=== PATIENT | female | born 1985 | race Caucasian/White ===

== ENCOUNTER 2021-01-04 13:35 | Inpatient (IN) | payer SELFPAY ==
[~2021-01-04] VITALS: Ht 160 cm; Wt 97.5 kg
[2021-01-04] MEDS ORDERED: ROPIVACAINE 0.2%/NS PREMIX 100 ML EPI SCH (14:10)
[2021-01-04] MEDS ORDERED: ROPIVACAINE 0.2%/NS PREMIX 200 ML EPI ONE (14:22)
[2021-01-04] MEDS ORDERED: CARBOPROST 250 MCG/ML AMP IM PRN (14:50)
[2021-01-04] MEDS ORDERED: PROMETHAZINE 25 MG/ML VIAL IVP PRN (14:50)
[2021-01-04] MEDS ORDERED: LACTATED RINGERS 1,000 ML IV SCH (14:50)
[2021-01-04] MEDS ORDERED: METHYLERGONOVINE 0.2 MG/ML AMP IM PRN ×2 (14:50→16:40)
[2021-01-04] MEDS ORDERED: NALBUPHINE 10 MG/ML AMP IVP PRN (14:50)
[2021-01-04 15:35] LABS: BASOPHILS # (AUTO) 0.2 K/uL (0.00-0.22); BASOPHILS % (AUTO) 1.3 % (0.0-2.0); HEMATOCRIT 30.8 % (36-48); HEMOGLOBIN 10.3 g/dL (12.0-16.0); LYMPHOCYTES # (AUTO) 0.8 K/uL (2.5-16.5); LYMPHOCYTES % (AUTO) 5.7 % (20.5-51.1); MEAN CORPUSCULAR HEMOGLOBIN 28 pg (27-31); MEAN CORPUSCULAR HGB CONC 34 g/dL (33-37); MONOCYTES # (AUTO) 0.6 K/uL (0.8-1.0); MONOCYTES % (AUTO) 4.2 % (1.7-9.3); NEUTROPHILS # (AUTO) 13.1 K/uL (1.8-7.7); NEUTROPHILS % (AUTO) 88.8 % (42.2-75.2); PLATELET COUNT (AUTO) 216 K/uL (140-450); RED BLOOD CELL COUNT(AUTO) 3.66 MIL/uL (4.20-5.40); RED CELL DISTRIBUTION WIDTH 14.7 % (11.6-13.7); WHITE BLOOD COUNT (AUTO) 14.8 K/uL (4.8-10.8)
[2021-01-04 15:40] VITALS: BP 130/72
[2021-01-04] MEDS ORDERED: OXYTOCIN 20 UNITS/LR PREMIX 1,000 ML IV ONE (15:41)
[2021-01-04 15:44] LABS: APPEARANCE,URINE CLEAR (CLEAR); BILIRUBIN,URINE NEGATIVE (NEGATIVE); BLOOD, URINE 2+ (NEGATIVE); COLOR,URINE YELLOW (YELLOW); LEUKOCYTE ESTERASE ,URINE NEGATIVE (NEGATIVE); NITRITE, URINE NEGATIVE (NEGATIVE); UGLUCOSE NEGATIVE (NEGATIVE)
[2021-01-04 15:49] LABS: RBC,URINE 20-50 /HPF (0-5); WBC,URINE 0-5 /HPF (0-5)
[2021-01-04 15:50] LABS: ALBUMIN 2.3 g/dL (3.4-5.0); ANION GAP 14.6 (8-16); CARBON DIOXIDE 21.6 mmol/L (21-32); CREATININE 0.8 mg/dL (0.6-1.3); POTASSIUM 4.2 mmol/L (3.5-5.1); TOTAL BILIRUBIN 0.3 mg/dL (0.0-1.0)
[2021-01-04 15:58] LABS: BARBITURATE, URINE NEGATIVE ng/ml (NEG <=200); BENZODIAZEPINE, URINE NEGATIVE ng/mL (NEG <=200); CANNABINOID, URINE NEGATIVE ng/mL (NEG <=50); COCAINE, URINE NEGATIVE ng/mL (NEG <=300); OPIATE, URINE NEGATIVE ng/mL (NEG <=2000); PHENCYCLIDINE SCREEN,URINE NEGATIVE ng/mL (NEG <=25)
[2021-01-04] MEDS ORDERED: MISOPROSTOL 200 MCG TAB ONE (15:58)
[2021-01-04] MEDS ORDERED: MEASLES, MUMPS, AND RUBELLA 1 VIAL SQVAC ONE (16:40)
[2021-01-04] MEDS ORDERED: bisacodyL 5 MG TABEC PO PRN (16:40)
[2021-01-04] MEDS ORDERED: OXYTOCIN 10 UNITS/ML VIAL IM PRN (16:40)
[2021-01-04] MEDS ORDERED: SIMETHICONE 80 MG TAB.CHEW PO PRN (16:40)
[2021-01-04] MEDS ORDERED: BENZOCAINE/MENTHOL 20%-0.5% 60 GM CAN TP PRN (16:40)
[2021-01-04] MEDS ORDERED: DOCUSATE SODIUM 100 MG GELCAP PO PRN (16:40)
[2021-01-04] MEDS ORDERED: METHYLERGONOVINE 0.2 MG TAB PO PRN (16:40)
[2021-01-04] MEDS ORDERED: IBUPROFEN 800 MG TAB PO PRN (16:40)
[2021-01-04] MEDS ORDERED: MISOPROSTOL 100 MCG TAB PO SCH ×2 (18:25→18:27)
[2021-01-04] MEDS: IBUPROFEN 600 MG TAB PO PRN (20:11)
[2021-01-04] MEDS ORDERED: oxyCODONE/APAP 5/325 MG 1 TAB TAB PO PRN (22:10)
[2021-01-05] MEDS: IBUPROFEN 600 MG TAB PO PRN (05:04)
[2021-01-05 08:10] LABS: HEMATOCRIT 31.1 % (36-48); HEMOGLOBIN 10.3 g/dL (12.0-16.0)
== END 2021-01-05 20:25 | disposition home or self-care (01) | DRG 806 ==
LOC: MLD 13:35 → MFCC 19:40
PROVIDERS: ADMIT Obstetrics & Gynecology; ATTEND Obstetrics & Gynecology
PROC: 10E0XZZ Delivery of Products of Conception, External Approach (ICD-10-PCS; principal; 2021-01-04)
PROC: 0HQ9XZZ Repair Perineum Skin, External Approach (ICD-10-PCS; 2021-01-04)
PROC: 3E0R3BZ Introduction of Anesthetic Agent into Spinal Canal, Percutaneous Approach (ICD-10-PCS; 2021-01-04)
PROC: 00HU33Z Insertion of Infusion Device into Spinal Canal, Percutaneous Approach (ICD-10-PCS; 2021-01-04)
DX: O48.0 Post-term pregnancy (principal); D62 Acute posthemorrhagic anemia; Z37.0 Single live birth; O70.0 First degree perineal laceration during delivery; Z3A.40 40 weeks gestation of pregnancy; Z20.822 Contact with and (suspected) exposure to COVID-19; O90.81 Anemia of the puerperium
CPT/HCPCS: 36415; 51702; 59409; 80053; 80305; 81001; 85018; 85025; 86592; 86886; 86900; 86901; C1758; J2210; J2590; J2795